=== PATIENT | male | born 1985 | race Caucasian/White ===

== ENCOUNTER 2022-05-26 21:41 | Emergency (ER) | payer OTHER, SELFPAY ==
--- NOTE | ~2022-05-26 | XR_ITS ---
EXAMINATION: XR CHEST CLINICAL INFORMATION: Cough. COMPARISON: None TECHNIQUE: Frontal view of the chest was obtained. FINDINGS: No significant abnormality is noted involving the heart, lungs, mediastinum, bony thorax or soft tissues. XR/XR chest 1V IMPRESSION: No acute cardiopulmonary process.
--- NOTE | 2022-05-26 21:46 | ECG_ITS ---
Test Reason : SYNCOPE Blood Pressure : / mmHG Vent. Rate : 084 BPM Atrial Rate : 084 BPM P-R Int : 174 ms QRS Dur : 104 ms QT Int : 378 ms P-R-T Axes : 046 -43 022 degrees QTc Int : 446 ms Normal sinus rhythm Left axis deviation Incomplete right bundle branch block Moderate voltage criteria for LVH, may be normal variant ( R in aVL , Jose Raul product ) Abnormal ECG No previous ECGs available Referred By: Karly Jones Electronically Signed By:TERESA DUARTE MD
[2022-05-26 22:14] LABS: MANUAL DIFF FLAG NO
[2022-05-26 22:16] LABS: Basophils Absolute Auto 0.1 X10*3/uL (0.0-0.2); Basophils Percent Auto 0.9 % (0-2); Eosinophils Absolute Auto 0.2 X10*3/uL (0.0-0.4); Eosinophils Percent Auto 2.1 % (0-4); Hematocrit 42.8 % (42.0-52.0); Hemoglobin 14.6 g/dl (14.0-18.0); Imm Gran Abs Auto 0.03 X10*3/uL (0.00-0.03); Imm Gran Pct Auto 0.4 % (0.0-0.4); Lymphocytes Absolute Auto 1.6 X10*3/uL (1.2-4.9); Lymphocytes Percent Auto 21.4 % (20-40); Mean Corpuscular HGB Conc 34.1 g/dl (31.0-36.0); Mean Corpuscular Hemoglobin 30.4 pg (27.0-33.0); Mean Corpuscular Volume 89.2 fL (80.0-98.0); Mean Platelet Volume 10.2 fL (9.4-12.4); Monocytes Absolute Auto 0.6 X10*3/uL (0.1-1.2); Monocytes Percent Auto 7.5 % (2-11); Neutrophils Absolute Auto 5.2 x10*3/uL (2.0-8.3); Neutrophils Percent Auto 67.7 % (45-73); Platelet Count 230 X10*3/uL (160-400); Red Cell Distribution Width 12.3 % (11.0-16.0); White Blood Count 7.6 X10*3/uL (4.8-10.8)
[2022-05-26 22:26] LABS: D Dimer High Sensitivity < 150 NG/ML
[2022-05-26 22:35] LABS: Alanine Aminotransferase 69 U/L (0-40); Albumin Level 4.7 g/dL (3.5-5.0); Alkaline Phosphatase 74 U/L (39-117); Anion Gap 16 (12-20); Aspartate Amino Transferase 35 U/L (5-37); Bilirubin Direct 0.3 mg/dL (0.0-0.5); Bilirubin Total 0.9 mg/dL (0.0-1.0); Blood Urea Nitrogen 14 mg/dL (9-16); Calcium 9.6 mg/dL (8.4-10.2); Carbon Dioxide 26 mmol/L (22-29); Chloride 107 mmol/L (96-108); Estimated Glomerular Filt Rate > 60; Glucose Random 111 mg/dL (60-115); Potassium 3.9 mmol/L (3.3-5.1); Sodium 145 mmol/L (135-145); Total Protein 7.6 g/dL (6.5-8.0)
[2022-05-26 22:43] LABS: COVID-19 Test Negative (Negative)
[2022-05-26 22:58] LABS: Troponin-I High Sensitivity < 3.5 ng/L (<3.5-35.0)
[2022-05-26 23:04] VITALS: BP 163/108; PULSE 92; RESP 18; TEMP 36.6; O2SAT 97; BMI 32.8
--- NOTE | 2022-05-27 00:44 | ED.GENADULT ---
HPI - General Adult General Chief complaint: Dizziness Stated complaint: coughing and stated passed out Time Seen by Provider: 05/27/22 00:33 Source: patient Mode of arrival: ambulatory Limitations: no limitations History of Present Illness HPI narrative: Patient comes to the emergency room complaining of cough for approximately 2-3 weeks. Patient states that besides the coughing spells he has, at night he feels a dripping sensation in the back of his throat which triggers a cough at night specifically. Also, patient states that today he had a coughing spell, patient states that he was coughing, and a few seconds later he found himself on the floor. Patient's witnessed the event, she was unsure if patient passed out, states it was less than 2 seconds. Patient denied any chest pain, only bilateral rib pain from coughing. Related Data Previous Rx's Medication Instructions Recorded benzonatate 100 mg capsule 100 mg PO TID PRN cough #14 caps 05/27/22 fexofenadine 60 mg-pseudoephedrine 1 tab PO Q12H #20 tabs 05/27/22 ER 120 mg tablet,ext.release,12 hr (Mary-D 12 Hour) Allergies Allergy/AdvReac Type Severity Reaction Status Date / Time No Known Allergies Allergy Verified 05/26/22 21:46 Review of Systems Review of Systems: Constitutional : No Weight loss, No Fever, No Chills, No Night Sweats, No Fatigue, No Malaise ENT/Mouth : No Hearing loss, No Ear Pain, No Nasal Congestion, No Sinus Pain, No Hoarseness, complaining of postnasal drip, No sore throat, No Rhinorrhea, No Swallowing Difficulty Eyes: No Eye Pain, No Swelling, No Redness, No Foreign Body, No Discharge, No Vision Changes Cardiovascular : No Chest Pain, No SOB, No Dyspnea on Exertion, No Orthopnea, No Edema, No Palpitations Respiratory : Complaining of chronic Cough, No Sputum, No Wheezing, No Smoke Exposure, No Dyspnea Gastrointestinal : No Nausea, No Vomiting, No Diarrhea, No Constipation, No abdominal Pain, No Hematochezia, No Melena Genitourinary : no irregular bleeding, No Dysuria, No Urinary Frequency, No Hematuria, No Urinary Incontinence, No Urgency, No Flank Pain, No Urinary Flow Changes, No Hesitancy Musculoskeletal : No joint pain, No Myalgias, No Joint Swelling Skin : No Skin Lesions, No rash Neuro : No Weakness, No Numbness, No Paresthesias, 1 episode of loss of consciousness for less than 2 seconds, no headache Psych : No Anxiety/Panic, No Depression, No SI/HI/AH/VH, No Social Issues, Heme/Lymph: No Bruising, No Bleeding,No Lymphadenopathy Endocrine : No Polyuria, No Polydipsia, No Temperature Intolerance Physical Exam ED Vital Signs: Vital Signs - 24 hr 05/26/22 23:04 Temperature 97.9 F Pulse Rate 92 Respiratory Rate 18 Blood Pressure 163/108 H Pulse Oximetry 97 Oxygen Delivery Method Room Air BMI result Body Mass Index 32.8 Const Other: Appearance: Alert. Oriented X3. No acute distress. Well appearing Eyes: Pupils equal, round and reactive to light. ENT: Pharynx normal. Neck: Normal inspection. Neck supple. No lymph nodes noted. No crepitus CVS: Normal heart rate and rhythm. Pulses normal. Normal S1 and S2 Respiratory: No respiratory distress. Breath sounds normal. No Wheezing. No rales Abdomen: Soft and nontender. No rigidity. No distention. Skin: Skin warm and dry. Normal skin color. Normal skin turgor. Extremities: No lower extremity edema. No Lacerations. No Rash Neuro: Oriented X 3. No motor deficit. No sensory deficit. Moving all extremities. No slurred speech. CN 2 through 12 grossly intact Psych: calm, cooperative, normal affect Course Course Course Narrative: I discussed with the patient that he likely has chronic bronchitis, coughing for several weeks, also he may have postnasal drip . Patient likely had a vasovagal episode from so much coughing. Patient's labs are unremarkable, troponin negative, D-dimer negative, chest x-ray negative I discussed with the patient that if he has recurrent syncopal episodes, he may need a Holter monitor evaluation or even a stress test Medical Decision Making Lab Data Result diagrams: 05/26/22 22:04 05/26/22 22:04 Labs: Lab Results 05/26/22 05/26/22 05/26/22 Range/Units 22:04 22:04 22:04 WBC 7.6 (4.8-10.8) X10*3/uL RBC 4.80 (4.60-5.80) X10*6/uL Hgb 14.6 (14.0-18.0) g/dl Hct 42.8 (42.0-52.0) % MCV 89.2 (80.0-98.0) fL MCH 30.4 (27.0-33.0) pg MCHC 34.1 (31.0-36.0) g/dl RDW 12.3 (11.0-16.0) % Plt Count 230 (160-400) X10*3/uL MPV 10.2 (9.4-12.4) fL Immature Gran % (Auto) 0.4 (0.0-0.4) % Neut % (Auto) 67.7 (45-73) % Lymph % (Auto) 21.4 (20-40) % [place] % (Auto) 7.5 (2-11) % Eos % (Auto) 2.1 (0-4) % Baso % (Auto) 0.9 (0-2) % Lymph # (Auto) 1.6 (1.2-4.9) X10*3/uL [place] # (Auto) 0.6 (0.1-1.2) X10*3/uL Eos # (Auto) 0.2 (0.0-0.4) X10*3/uL Baso # (Auto) 0.1 (0.0-0.2) X10*3/uL Abs Immat Gran (auto) 0.03 (0.00-0.03) X10*3/uL Absolute Neuts (auto) 5.2 (2.0-8.3) x10*3/uL Absolute Nucleated RBC 0.000 (0.0-0.012) X10*3/uL Nucleated RBC % (auto) 0.0 (0.0-0.2) /100WBC D-Dimer High Sensitivty < 150 NG/ML Sodium 145 (135-145) mmol/L Potassium 3.9 (3.3-5.1) mmol/L Chloride 107 (96-108) mmol/L Carbon Dioxide 26 (22-29) mmol/L Anion Gap 16 (12-20) BUN 14 (9-16) mg/dL Creatinine 1.03 (0.5-1.4) mg/dL Estim Creat Clear Calc TNP Estimated GFR > 60 Random Glucose 111 (60-115) mg/dL Calcium 9.6 (8.4-10.2) mg/dL Total Bilirubin 0.9 (0.0-1.0) mg/dL Direct Bilirubin 0.3 (0.0-0.5) mg/dL AST 35 (5-37) U/L ALT 69 H (0-40) U/L Alkaline Phosphatase 74 (39-117) U/L Troponin I High Sens (<3.5-35.0) ng/L Total Protein 7.6 (6.5-8.0) g/dL Albumin 4.7 (3.5-5.0) g/dL COVID-19 ([facility]) (Negative) COVID-19 Clin Com 05/26/22 05/26/22 Range/Units 22:04 22:04 WBC (4.8-10.8) X10*3/uL RBC (4.60-5.80) X10*6/uL Hgb (14.0-18.0) g/dl Hct (42.0-52.0) % MCV (80.0-98.0) fL MCH (27.0-33.0) pg MCHC (31.0-36.0) g/dl RDW (11.0-16.0) % Plt Count (160-400) X10*3/uL MPV (9.4-12.4) fL Immature Gran % (Auto) (0.0-0.4) % Neut % (Auto) (45-73) % Lymph % (Auto) (20-40) % [place] % (Auto) (2-11) % Eos % (Auto) (0-4) % Baso % (Auto) (0-2) % Lymph # (Auto) (1.2-4.9) X10*3/uL [place] # (Auto) (0.1-1.2) X10*3/uL Eos # (Auto) (0.0-0.4) X10*3/uL Baso # (Auto) (0.0-0.2) X10*3/uL Abs Immat Gran (auto) (0.00-0.03) X10*3/uL Absolute Neuts (auto) (2.0-8.3) x10*3/uL Absolute Nucleated RBC (0.0-0.012) X10*3/uL Nucleated RBC % (auto) (0.0-0.2) /100WBC D-Dimer High Sensitivty NG/ML Sodium (135-145) mmol/L Potassium (3.3-5.1) mmol/L Chloride (96-108) mmol/L Carbon Dioxide (22-29) mmol/L Anion Gap (12-20) BUN (9-16) mg/dL Creatinine (0.5-1.4) mg/dL Estim Creat Clear Calc Estimated GFR Random Glucose (60-115) mg/dL Calcium (8.4-10.2) mg/dL Total Bilirubin (0.0-1.0) mg/dL Direct Bilirubin (0.0-0.5) mg/dL AST (5-37) U/L ALT (0-40) U/L Alkaline Phosphatase (39-117) U/L Troponin I High Sens < 3.5 (<3.5-35.0) ng/L Total Protein (6.5-8.0) g/dL Albumin (3.5-5.0) g/dL COVID-19 ([facility]) Negative (Negative) COVID-19 Clin Com See Note Imaging Data Chest x-ray: Radiologist's impression: FINDINGS: No significant abnormality is noted involving the heart, lungs, mediastinum, bony thorax or soft tissues. XR/XR chest 1V IMPRESSION: No acute cardiopulmonary process. ECG Data Attestation: I personally reviewed and interpreted this ECG as follows: (Sinus rhythm, heart rate 84, no ST segment depression or elevation, no T-wave inversion, QTC 446) Discharge Plan Discharge Clinical Impression: Vasovagal syncope, Bronchitis, Post-nasal drip Patient Disposition: Home, Self-Care Instructions: Syncope (ED), Acute Bronchitis (ED) Additional Instructions: Please follow-up with your primary care physician tomorrow. If you have any worsening or new symptoms, please return to the emergency room or call 911 Prescriptions: New fexofenadine-pseudoephedrine [Mary-D 12 Hour] 60-120 mg tablet extended release 12 hr 1 tab PO Q12H Qty: 20 0RF benzonatate 100 mg capsule 100 mg PO TID PRN (Reason: cough) Qty: 14 0RF
--- OUTSIDE RECORDS SUMMARY | 2022-05-27 00:54 | XMS_ITS | Continuity of Care Document ---
:1985 Author Organization [facility] Adult Address [address] [place] [address]- Care Team Providers Name Role Phone Vijay VELIZ, Skinny Aviles Primary Care Physician Encounter [facility] Date(s): 10/09/20 - 11/08/20 [facility] Adult [address] [place] [address]- Attending Physician: Pankaj Quezada Admitting Physician: AdmPankaj middleton Referring Physician: AdmtrPankaj Allergies, Adverse Reactions, Alerts Substance Reaction Severity Status Amoxil rash Active Immunizations Given and Recorded Vaccine Date Status Refusal Reason influenza virus vaccine, inactivated1 06/09/20 Given 1Result Comment: [id number] Medications escitalopram 10 mg oral tablet 1 tablet = 10 mg, By Mouth, Daily, # 90 tablet, 3 Refills, Maintenance, 06/09/20 12:15:00 EST, Tablet, [id number] Start Date: 06/09/20 Status: OrderedLORazepam 1 mg oral tablet 1 tablet = 1 mg, By Mouth, Daily, PRN Take at the onset of a panic attack, # 6 tablet, 0 Refills, Maintenance, 07/18/20 15:28:00 EST, Tablet, [id number] Start Date: 07/18/20 Status: Ordered Problem List Condition Effective Dates Status Health Status Informant Multiple nevi(Confirmed) Active Mood disorder(Confirmed) Active Sebaceous cyst(Confirmed) Active Social History Social History Type Response Tobacco Other: 2 to 3 cigarettes a d ay. Sex Male
--- OUTSIDE RECORDS SUMMARY | 2022-05-27 00:54 | XMS_ITS | Continuity of Care Document ---
:1985 Author Organization [facility] Adult Address [address] [place] [address]- Care Team Providers Name Role Phone Vijay VELIZ, Skinny Aviles Primary Care Physician Encounter [facility] [place] Date(s): 10/09/20 - 10/16/20 [facility] Adult [address] [place] [address]- Encounter Diagnosis Multiple nevi (Discharge Diagnosis) - 10/09/20 Sebaceous cyst (Discharge Diagnosis) - 10/09/20 Attending Physician: Not on Staff, Attending MD Allergies, Adverse Reactions, Alerts Substance Reaction Severity Status Amoxil rash Active Immunizations Given and Recorded Vaccine Date Status Refusal Reason influenza virus vaccine, inactivated1 06/09/20 Given 1Result Comment: [id number] Medications escitalopram 10 mg oral tablet 1 [...] Active Mood disorder(Confirmed) Active Sebaceous cyst(Confirmed) Active Diagnosis Diagnosis Type Effective Dates Health Status Clinical In formant Service Multiple nevi Discharge 10/09/20 Diagnosis Sebaceous cyst Discharge 10/09/20 Diagnosis Vital Signs Most recent to oldest [Reference Range]: 1 Weight 102.2 kg (10/09/20 8:11 AM) Oxygen Saturation [94-100 %] 98 % (10/09/20 8:11 AM) Pulse Rate [55-90 bpm] 78 bpm (10/09/20 8:11 AM) Blood Pressure [90-138/55-84 mm Hg] 100/62 mm Hg (10/09/20 8:11 AM) Temperature [96.8-100.4 DegF] 98.1 DegF (10/09/20 8:11 AM) Blood pressure sites Arm, right (10/09/20 8:11 AM) Social History Social History Type Response Tobacco Other: 2 to 3 cigarettes a d ay. Sex Male
--- OUTSIDE RECORDS SUMMARY | 2022-05-27 00:54 | XMS_ITS | Continuity of Care Document ---
:1985 Author Organization [facility] Adult Address [address] [place] [address]- Care Team Providers Name Role Phone Skinny Linares MD Primary Care Physician Encounter [facility] [place] Date(s): 12/25/20 - 01/01/21 [facility] Adult [address] [place] [address]- Encounter Diagnosis General medical exam (Discharge Diagnosis) - 12/25/20 Mood disorder (Discharge Diagnosis) - 12/25/20 Attending Physician: Skinny Linares MD Allergies, Adverse Reactions, Alerts Substance Reaction Severity Status Amoxil rash Active Immunizations Given and Recorded Vaccine Date Status Refusal Reason influenza virus vaccine, inactivated1 06/09/20 Given 1Result Comment: [id number] Medications buPROPion 300 mg/24 hours (XL) oral tablet, extended release 1 tablet = 300 mg, By Mouth, Daily, # 90 tablet, 3 Refills, Maintenance, 12/25/20 14:43:00 EDT, ER Tablet, [id number], Partial fill upon patient request if the prescription is for a schedule IIopioid drug. Start Date: 12/25/20 Status: Orderedescitalopram 10 mg oral tablet 1 tablet = 10 mg, By Mouth, Daily, # 90 tablet, 3 Refills, Maintenance, 06/09/20 12:15:00 EST, Tablet, [id number] Start Date: 06/09/20 Status: OrderedLORazepam 1 mg oral tablet 1 tablet = 1 mg, By Mouth, Daily, PRN Take at the onset of a panic attack, # 6 tablet, 0 Refills, Maintenance, 11/25/20 17:18:00 EDT, Tablet, [id number] Start Date: 11/25/20 Status: Ordered Problem List Condition Effective Dates Status Health Status Informant Multiple nevi(Confirmed) Active Mood disorder(Confirmed) Active Sebaceous cyst(Confirmed) Active Diagnosis Diagnosis Type Effective Dates Health Status Clinical In [facility] Service Mood disorder Discharge 12/25/20 Diagnosis General medical Discharge 12/25/20 exam Diagnosis Vital Signs Most recent to oldest [Reference Range]: 1 Weight 107.3 kg (12/25/20 2:23 PM) Oxygen Saturation [94-100 %] 98 % (12/25/20 2:23 PM) Pulse Rate [55-90 bpm] 72 bpm (12/25/20 2:23 PM) Blood Pressure [90-138/55-84 mm Hg] 110/76 mm Hg (12/25/20 2:23 PM) Temperature [96.8-100.4 DegF] 97.9 DegF (12/25/20 2:23 PM) Mode of Delivery (Oxygen) Room air (12/25/20 2:23 PM) Blood pressure sites Arm, left (12/25/20 2:23 PM) Temperature Route Oral (12/25/20 2:23 PM) Weight Obtained Via Standing scale (12/25/20 2:23 PM) Social History Social History Type Response Tobacco Other: 2 to 3 cigarettes a d ay. Sex Male
--- OUTSIDE RECORDS SUMMARY | 2022-05-27 00:54 | XMS_ITS | Continuity of Care Document ---
:1985 Author Organization [facility] Adult Address [address] [place] [address]- Care Team Providers Name Role Phone Skinny Linares MD Primary Care Physician Encounter [facility] [place] Date(s): 12/04/19 - 12/11/19 [facility] Adult [address] [place] [address]- [facility] Encounter Diagnosis Atypical depression (Discharge Diagnosis) - 12/04/19 Attending Physician: Skinny Linares MD Medications escitalopram 5 mg oral tablet 1 tablet = 5 mg, By Mouth, Daily, # 30 tablet, 5 Refills, Maintenance, 12/04/19 11:26:00 EDT, Tablet, [id number] Start Date: 12/04/19 Status: OrderedLORazepam 1 mg oral tablet 1 tablet = 1 mg, By Mouth, Daily, PRN Take at the onset of a panic attack, # 6 tablet, 0 Refills, Maintenance, 12/04/19 11:26:00 EDT, Tablet, [id number] Start Date: 12/04/19 Status: Ordered Problem List Diagnosis Diagnosis Type Effective Dates Health Clinical Infor [facility] Status Service Atypical Discharge 12/04/19 depression Diagnosis Social History Social History Type Response Tobacco Other: 2 to 3 cigarettes a d ay. Sex Male
--- OUTSIDE RECORDS SUMMARY | 2022-05-27 00:54 | XMS_ITS | Continuity of Care Document ---
:1985 Author Organization [facility] Adult Address [address] [place] [address]- Care Team Providers Name Role Phone Skinny Linares MD Primary Care Physician [place] [facility] [place]17[place] - 12/24/19 [facility] Adult [address] [place] [address]- [facility] Attending Physician: Skinny Linares MD Medications escitalopram 5 mg oral tablet 1 tablet = 5 mg, By Mouth, Daily, # 30 tablet, 5 Refills, Maintenance, 12/04/19 11:26:00 EDT, Tablet, [id number] Start Date: 12/04/19 Status: OrderedLORazepam 1 mg oral tablet 1 tablet = 1 mg, By Mouth, Daily, PRN Take at the onset of a panic attack, # 6 tablet, 0 Refills, Maintenance, 12/17/19 15:11:00 EDT, Tablet, [id number] Start Date: 12/17/19 Status: Ordered Social History Social History Type Response Tobacco Other: 2 to 3 cigarettes a d ay. Sex Male
--- OUTSIDE RECORDS SUMMARY | 2022-05-27 00:54 | XMS_ITS | Continuity of Care Document ---
:1985 Author Organization [facility] Adult Address [address] [place] [address]- Care Team Providers Name Role Phone Skinny Linares MD Primary Care Physician [place] [facility] [place] 01/17/20 [facility] Adult [address] [place] [address]- [facility] Attending Physician: Skinny Linares MD Medications escitalopram [...]
--- OUTSIDE RECORDS SUMMARY | 2022-05-27 00:54 | XMS_ITS | Continuity of Care Document ---
:1985 Author Organization [facility] Adult Address [address] [place] [address]- Care Team Providers Name Role Phone Cat Cota NP Primary Care Physician [place] [facility] [place](s): 01/01/22 - 01/31/22 [facility] Adult [address] [place] [address]- Attending Physician: Pankaj Quezada Admitting Physician: AdmtrPankaj Referring Physician: Admtr, ArDean Allergies, Adverse Reactions, Alerts Substance Reaction Severity Status Amoxil rash Active Immunizations Given and Recorded Vaccine Date Status Refusal Reason influenza virus vaccine, inactivated1 06/09/20 Given 1Result Comment: [id number] Medications buPROPion 300 mg/24 hours (XL) oral tablet, extended release 1 tablet, By Mouth, Daily, # 30 tablet, 11 Refills, [id number], 180, cm, 03/06/21 13:45:00 EDT,Height Start Date: 01/11/22 Status: Orderedescitalopram 5 mg oral tablet 1 tablet, By Mouth, Daily, # 30 tablet, 5 Refills, [id number], 180, cm, 03/06/21 13:45:00 EDT, Height Start Date: 09/10/21 Status: OrderedLORazepam 1 mg oral tablet 1 [...]
--- OUTSIDE RECORDS SUMMARY | 2022-05-27 00:54 | XMS_ITS | Continuity of Care Document ---
:1985 Author Organization [facility] Adult Address [address] [place] [address]- Care Team Providers Name Role Phone Vijay VELIZ, Skinny Aviles Primary Care Physician [place] [facility] [place] 07[place]/20 [facility] Adult [address] [place] [address]- Allergies, Adverse Reactions, Alerts Substance Reaction Severity Status Amoxil rash Active Immunizations Given and Recorded Vaccine Date Status Refusal Reason influenza virus vaccine, inactivated1 06/09/20 Given 1Result Comment: [id number] Medications escitalopram 10 mg oral tablet 1 [...] Condition Effective Dates Status Health Status Informant Mood disorder(Confirmed) Active Social History Social History Type Response Tobacco Other: 2 to 3 cigarettes a d ay. Sex Male
--- OUTSIDE RECORDS SUMMARY | 2022-05-27 00:54 | XMS_ITS | Continuity of Care Document ---
:1985 Author Organization [facility] Adult Address [address] [place] [address]- Care Team Providers Name Role Phone Vijay VELIZ, Skinny Aviles Primary Care Physician Encounter [facility] [place] Date(s): 03/06/20 - 04/05/20 [facility] Adult [address] [place] [address]- [facility] Medications escitalopram 5 mg oral tablet 1 tablet = 5 mg, By Mouth, Daily, # 30 tablet, 5 Refills, Maintenance, 12/04/19 11:26:00 EDT, Tablet, [id number] Start Date: 12/04/19 Status: OrderedLORazepam 1 mg oral tablet 1 tablet = 1 mg, By Mouth, Daily, PRN Take at the onset of a panic attack, # 6 tablet, 0 Refills, Maintenance, 03/06/20 16:53:00 EDT, Tablet, [id number] Start Date: 03/06/20 Status: Ordered Social History Social History Type Response Tobacco Other: 2 to 3 cigarettes a d ay. Sex Male
--- OUTSIDE RECORDS SUMMARY | 2022-05-27 00:54 | XMS_ITS | Continuity of Care Document ---
:1985 Author Organization [facility] Adult Address [address] [place] [address]- Care Team Providers Name Role Phone Skinny Linares MD Primary Care Physician Encounter [facility] [place] Date(s): 11/25/20 - 12/25/20 [facility] Adult [address] [place] [address]- Allergies, Adverse Reactions, Alerts Substance Reaction Severity Status Amoxil rash Active Immunizations Given and Recorded Vaccine Date Status Refusal Reason influenza virus vaccine, inactivated1 06/09/20 Given 1Result Comment: [id number] Medications buPROPion 300 mg/24 hours (XL) oral [...]
--- OUTSIDE RECORDS SUMMARY | 2022-05-27 00:54 | XMS_ITS | Continuity of Care Document ---
:1985 Author Organization [facility] Adult Address [address] [place] [address]- Care Team Providers Name Role Phone Skinny Linares MD Primary Care Physician [place] [facility] [place] 06[place]09/20 - 06/16/20 [facility] Adult [address] [place] [address]- Encounter Diagnosis Mood disorder (Discharge Diagnosis) - 06/09/20 Attending Physician: Skinny Linares MD Allergies, Adverse Reactions, Alerts Substance Reaction Severity Status Amoxil rash Active Immunizations Given and Recorded Vaccine Date Status Refusal Reason influenza virus vaccine, inactivated1 06/09/20 Given 1Result Comment: [id number] Medications escitalopram 10 mg oral tablet 1 tablet = 10 mg, By Mouth, Daily, # 90 tablet, 3 Refills, Maintenance, 06/09/20 12:15:00 EST, Tablet, [id number] Start Date: 06/09/20 Status: OrderedLORazepam 1 mg oral tablet 1 tablet = 1 mg, By Mouth, Daily, PRN Take at the onset of a panic attack, # 6 tablet, 0 Refills, Maintenance, 06/05/20 12:01:00 EDT, Tablet, [id number] Start Date: 06/05/20 Status: Ordered Problem List Condition Effective Dates Status Health Status Informant Mood disorder(Confirmed) Active Diagnosis Diagnosis Type Effective Dates Health Status Clinical In formant Service Mood disorder Discharge 06/09/20 Diagnosis Vital Signs Most recent to oldest [Reference Range]: 1 Weight 99.8 kg (06/09/20 11:44 AM) Oxygen Saturation [94-100 %] 97 % (06/09/20 11:44 AM) Pulse Rate [55-90 bpm] 80 bpm (06/09/20 11:44 AM) Blood Pressure [90-138/55-84 mm Hg] 112/64 mm Hg (06/09/20 11:44 AM) Temperature [96.8-100.4 DegF] 98.1 DegF (06/09/20 11:44 AM) Mode of Delivery (Oxygen) Room air (06/09/20 11:44 AM) Blood pressure sites Arm, left (06/09/20 11:44 AM) Temperature Route Oral (06/09/20 11:44 AM) Weight Obtained Via Standing scale (06/09/20 11:44 AM) Social History Social History Type Response Tobacco Other: 2 to 3 cigarettes a d ay. Sex Male
--- OUTSIDE RECORDS SUMMARY | 2022-05-27 00:55 | XMS_ITS | Continuity of Care Document ---
:1985 Author Organization [facility] Adult Address [address] [place] [address]- Care Team Providers Name Role Phone Cipriano SEXTON, Cat Valle Primary Care Physician Encounter [facility] [place] Date(s): 10/03/21 - 01/31/22 [facility] Adult [address] [place] [address]- Attending Physician: Cat Cota NP Referring Physician: Grisel VELIZ, Vahe Lerner Allergies, Adverse Reactions, Alerts Substance Reaction Severity Status Amoxil rash Active Immunizations Given and Recorded Vaccine Date Status Refusal Reason influenza virus vaccine, inactivated1 06/09/20 Given 1Result Comment: [id number] Medications buPROPion 300 mg/24 hours (XL) oral tablet, extended release 1 tablet, By Mouth, Daily, # 30 tablet, 11 Refills, [id number], 180, cm, 03/06/21 13:45:00 EDT,Height Start Date: 01/11/22 Status: Orderedescitalopram 5 mg oral tablet 1 tablet, By Mouth, Daily, # 30 tablet, 5 Refills, [facility], 180, cm, 03/06/21 13:45:00 EDT, Height Start [...]
--- OUTSIDE RECORDS SUMMARY | 2022-05-27 00:55 | XMS_ITS | Continuity of Care Document ---
:1985 Author Organization [facility] Adult Address [address] [place] [address]- Care Team Providers Name Role Phone Skinny Linares MD Primary Care Physician Encounter [facility] [place] Date(s): 12/25/20 - 01/24/21 [facility] Adult [address] [place] [address]- Attending Physician: Pankaj Quezada Admitting Physician: AdmtrPankaj Referring Physician: Admtr, Ar8 Allergies, Adverse Reactions, Alerts Substance Reaction Severity Status Amoxil rash Active Immunizations Given and Recorded Vaccine Date Status Refusal Reason influenza virus vaccine, inactivated1 06/09/20 Given 1Result Comment: [id number] Medications buPROPion 300 mg/24 hours (XL) oral [...]
--- OUTSIDE RECORDS SUMMARY | 2022-05-27 00:55 | XMS_ITS | Continuity of Care Document ---
:1985 Author Organization [facility] Adult Address [address] [place] [address]- Care Team Providers Name Role Phone Skinny Linares MD Primary Care Physician Encounter [facility] [place] Date(s): 03/06/21 - 03/13/21 [facility] Adult [address] [place] [address]- Encounter Diagnosis Mood disorder (Discharge Diagnosis) - 03/06/21 Attending Physician: Skinny Linares MD Allergies, Adverse Reactions, Alerts Substance Reaction Severity Status Amoxil rash Active Immunizations Given and Recorded Vaccine Date Status Refusal Reason influenza virus vaccine, inactivated1 06/09/20 Given 1Result Comment: [id number] Medications buPROPion 300 mg/24 hours (XL) oral tablet, extended release 1 tablet = 300 mg, By Mouth, Daily, # 90 tablet, 3 Refills, Maintenance, 12/25/20 14:43:00 EDT, ER Tablet, [id number], Partial fill upon patient request if the prescription is for a schedule IIopioid drug. Start Date: 12/25/20 Status: Orderedescitalopram 5 mg oral tablet 1 tablet = 5 mg, By Mouth, Daily, # 30 tablet, 5 Refills, Maintenance, 03/06/21 14:10:00 EDT, Tablet, [id number], Partial fill upon patient request if the prescription is for a schedule II opioid drug., 180, cm, 03/06/21 13:45:00 EDT, Height Start Date: 03/06/21 Status: OrderedLORazepam 1 mg oral tablet 1 [...] Type Effective Dates Health Status Clinical In [facility] Mood disorder Discharge 03/06/21 Diagnosis Vital Signs Most recent to oldest [Reference Range]: 1 Height 180.0 cm (03/06/21 1:45 PM) Weight 110.3 kg (03/06/21 1:45 PM) Oxygen Saturation [94-100 %] 98 % (03/06/21 1:45 PM) Pulse Rate [55-90 bpm] 102 bpm *H* (03/06/21 1:45 PM) Body Mass Index [18.5-24.99] 34.04 *>HHI* (03/06/21 1:45 PM) Blood Pressure [90-138/55-84 mm Hg] 106/68 mm Hg (03/06/21 1:45 PM) Temperature [96.8-100.4 DegF] 98.3 DegF (03/06/21 1:45 PM) Mode of Delivery (Oxygen) Room air (03/06/21 1:45 PM) Blood pressure sites Arm, left (03/06/21 1:45 PM) Temperature Route Oral (03/06/21 1:45 PM) Weight Obtained Via Standing scale (03/06/21 1:45 PM) Social History Social History Type Response Tobacco Other: 2 to 3 cigarettes a d ay. Sex Male
--- OUTSIDE RECORDS SUMMARY | 2022-05-27 00:55 | XMS_ITS | Continuity of Care Document ---
:1985 Author Organization [facility] Adult Address [address] [place] [address]- Care Team Providers Name Role Phone Skinny Linares MD Primary Care Physician En[place] [facility] [place] Date(s): 12/17/19 - 01/16/20 [facility] Adult [address] [place] [address]- [facility] Attending Physician: Pankaj Quezada Admitting Physician: Pankaj Quezada Referring Physician: trPankaj Medications escitalopram 5 mg oral tablet 1 [...]
--- OUTSIDE RECORDS SUMMARY | 2022-05-27 00:55 | XMS_ITS | Continuity of Care Document ---
:1985 Author Organization [facility] Adult Address [address] [place] [address]- Care Team Providers Name Role Phone Skinny Linares MD Primary Care Physician Encounter [facility] [place] Date(s): 05/14/21 - 06/13/21 [facility] Adult [address] [place] [address]- Allergies, Adverse Reactions, Alerts Substance Reaction Severity Status Amoxil rash Active Immunizations Given and Recorded Vaccine Date Status Refusal Reason influenza virus vaccine, inactivated1 06/09/20 Given 1Result Comment: [id number] Medications buPROPion 300 mg/24 hours (XL) oral [...] 17:18:00 EDT, Tablet, [id number] Start Date: 4/20/21 Status: Ordered Problem List Condition Effective Dates Status Health Status Informant Multiple nevi(Confirmed) Active Mood disorder(Confirmed) Active Sebaceous cyst(Confirmed) Active Social History Social History Type Response Tobacco Other: 2 to 3 cigarettes a d ay. Sex Male
--- OUTSIDE RECORDS SUMMARY | 2022-05-27 00:55 | XMS_ITS | Continuity of Care Document ---
:1985 Author Organization [facility] Adult Address [address] [place] [address]- Care Team Providers Name Role Phone Skinny Linares MD Primary Care Physician Encounter [facility] [place] Date(s): 03/06/21 - 04/05/21 [facility] Adult [address] [place] [address]- Attending Physician: Pankaj Quezada Admitting Physician: AdmtrPankaj Referring Physician: Admtr, Ar8 Allergies, Adverse Reactions, Alerts Substance Reaction Severity Status Amoxil rash Active Immunizations Given and Recorded Vaccine Date Status Refusal Reason influenza virus vaccine, inactivated1 06/09/20 Given 1Result Comment: [id number] Medications buPROPion 300 mg/24 hours (XL) oral [...]
--- OUTSIDE RECORDS SUMMARY | 2022-05-27 00:55 | XMS_ITS | Continuity of Care Document ---
:1985 Author Organization [facility] Adult Address [address] [place] [address]- Care Team Providers Name Role Phone Skinny Linares MD Primary Care Physician [place] [facility] [place](s): 06/05/20 - 06/12/20 [facility] Adult [address] [place] [address]- Encounter Diagnosis Rectal bleed (Discharge Diagnosis) - 06/05/20 Attending Physician: Skinny Linares MD Allergies, Adverse Reactions, Alerts Substance Reaction Severity Status Amoxil rash Active Immunizations Given and Recorded Vaccine Date Status Refusal Reason influenza virus vaccine, inactivated1 06/09/20 Given 1Result Comment: [id number] Medications escitalopram 10 mg oral tablet 1 [...] Dates Health Status Clinical In [facility] Rectal bleed Discharge 06/05/20 Diagnosis Social History Social History Type Response Tobacco Other: 2 to 3 cigarettes a d ay. Sex Male
--- OUTSIDE RECORDS SUMMARY | 2022-05-27 00:55 | XMS_ITS | Continuity of Care Document ---
:1985 Author Organization [facility] Adult Address [address] [place] [address]- Care Team Providers Name Role Phone Vijay VELIZ, Skinny Aviles Primary Care Physician Encounter [facility] [place] Date(s): 03/04/20 - 04/03/20 [facility] Adult [address] [place] [address]- [facility] Medications escitalopram 5 mg oral tablet [...]
--- OUTSIDE RECORDS SUMMARY | 2022-05-27 00:55 | XMS_ITS | Continuity of Care Document ---
:1985 Author Organization [facility] Adult Address [address] [place] [address]- Care Team Providers Name Role Phone Vijay VELIZ, Skinny Aviles Primary Care Physician [place] [facility] [place] - 08/14/20 [facility] Adult [address] [place] [address]- Allergies, Adverse Reactions, Alerts Substance Reaction Severity Status Amoxil rash Active Immunizations Given and Recorded Vaccine Date Status Refusal Reason influenza virus vaccine, inactivated1 06/09/20 Given 1Result Comment: [id number] Medications escitalopram 10 mg oral tablet 1 [...]
--- OUTSIDE RECORDS SUMMARY | 2022-05-27 00:55 | XMS_ITS | Continuity of Care Document ---
:1985 Author Organization [facility] Adult Address [address] [place] [address]- Care Team Providers Name Role Phone Vijay VELIZ, Skinny Aviles Primary Care Physician [place] [facility] [place] 11/06/20 - 12/06/20 [facility] Adult [address] [place] [address]- Allergies, Adverse Reactions, Alerts Substance Reaction Severity Status Amoxil rash Active Immunizations Given and Recorded Vaccine Date Status Refusal Reason influenza virus vaccine, inactivated1 06/09/20 Given 1Result Comment: [id number] Medications escitalopram 10 mg oral tablet 1 [...]
--- OUTSIDE RECORDS SUMMARY | 2022-05-27 00:55 | XMS_ITS | Continuity of Care Document ---
:1985 Author Organization [facility] Adult Address [address] [place] [address]- Care Team Providers Name Role Phone Cipriano SEXTON, Cat Valle Primary Care Physician Encounter [facility] [place] Date(s): 10/06/21 - 11/05/21 [facility] Adult [address] [place] [address]- Allergies, Adverse Reactions, Alerts Substance Reaction Severity Status Amoxil rash Active Immunizations Given and Recorded Vaccine Date Status Refusal Reason influenza virus vaccine, inactivated1 06/09/20 Given 1Result Comment: [id number] Medications buPROPion 300 mg/24 hours (XL) oral [...] # 30 tablet, 5 Refills, [id number], 180, cm, 03/06/21 13:45:00 EDT, Height Start [...]
--- OUTSIDE RECORDS SUMMARY | 2022-05-27 00:55 | XMS_ITS | Continuity of Care Document ---
:1985 Author Organization [facility] Adult Address [address] [place] [address]- Care Team Providers Name Role Phone Vijay VELIZ, Skinny Aviles Primary Care Physician Encounter [facility] [place] Date(s): 02/29/20 - 03/30/20 [facility] Adult [address] [place] [address]- [facility] Medications escitalopram 5 mg oral tablet 1 [...]
--- NOTE | 2022-05-27 01:02 | PC.NURSE ---
PT A&O, NO SOB OR CHEST PAIN. Reviewed discharge instruction with pt . Pt verbalized understanding.
== END 2022-05-27 01:06 | disposition home or self-care (01) ==
PROVIDERS: Emergency Provider Emergency Medicine
DX: R55 Syncope and collapse (principal); J40 Bronchitis, not specified as acute or chronic; R05.9 Cough, unspecified; R09.82 Postnasal drip; Z20.822 Contact with and (suspected) exposure to COVID-19; Z79.899 Other long term (current) drug therapy
CPT/HCPCS: 71045; 80048; 80076; 84484; 85025; 85379; 87635; 93005; 99283; 99284

== ENCOUNTER 2023-08-19 07:16 | Emergency (ER) | payer OTHER, SELFPAY ==
[2023-08-19 07:28] VITALS: BP 111/74; BP 115/55; PULSE 110; PULSE 99; RESP 20; TEMP 36.8; O2SAT 94; BMI 36.3
--- NOTE | 2023-08-19 07:28 | ED_ITS ---
HPI - Nausea/Vomiting/Diarrhea General Chief complaint: Nausea/Vomiting/Diarrhea Stated complaint: n/v/d per ems Source: patient and EMS Mode of arrival: EMS Limitations: no limitations History of Present Illness HPI Narrative: 37 year old male with no significant pmhx presents to the ED this morning via EMS from home for evaluation of nausea, vomiting, and diarrhea beginning at 0200 this morning (5 hours ago). Reports multiple episodes of nonbloody vomiting. Last BM [employer]. Admits to feeling like he was hit by a truck . Reports eating pizza prior to going to bed last night which is nothing out of the ordinary. Has not taken any OTC medications for this [employer] in ED. 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 Denies fever, chills, chest pain, abdominal pain, dysuria, hematuria, melena, bright red blood per rectum. Denies marijuana use. No recent travel. Admits to drinking 2 glasses of wine daily. Last drink yesterday. Related Data Previous Rx's Medication Instructions Recorded benzonatate 100 mg capsule 100 mg PO TID PRN cough #14 caps 05/27/22 fexofenadine 60 mg-pseudoephedrine 1 tab PO Q12H #20 tabs 05/27/22 ER 120 mg tablet,ext.release,12 hr (Mary-D 12 Hour) ondansetron 4 mg disintegrating 4 mg PO DAILY PRN nausea and 08/19/23 tablet vomiting 5 days #14 tabs Allergies Allergy/AdvReac Type Severity Reaction Status Date / Time No Known Allergies Allergy Verified 05/26/22 21:46 Review of Systems 2 Review of Systems: Constitutional: No fever, chills, fatigue, night sweats, weight changes ENT/Mouth: No ear pain, hearing loss, nasal congestion, sinus pain, rhinorrhea, sore throat Eyes: No eye pain, swelling, redness, vision changes, discharge Cardio: No chest pain, palpitations, CARLIN, orthopnea, peripheral edema Pulm: No SOB, cough, sputum, wheezing, dyspnea, hemoptysis GI: +nausea, +vomiting, No hematemesis, abdominal pain, +diarrhea, No constipation, hematochezia, melena : No irregular bleeding, dysuria, frequency, urgency, hesitancy, hematuria, flank pain, urinary flow changes, urinary incontinence or retention MSK: No back pain, neck pain, joint pain, myalgias Skin: No lesions, rashes Neuro: No weakness, numbness, paresthesias, LOC, dizziness, headache All other systems reviewed and are negative. [facility] Past Medical History Attestation statement: The following information was validated with the patient. Source: old records reviewed and nursing notes reviewed Onset Date is defined in the Problem List Problems that require an onset date and time if occurred within 24 hrs of arrival to the ED Aortic Dissection and Rupture; Neurologic impairment; Cardiopulmonary Arrest; Endotracheal Intubation; Insertion or Replacement of Mechanical Circulatory Assist Device Social History Social History Patient Tobacco Use Status: Never used Tobacco Advance Directives: No Advance Directives Information Provided: No Physical Exam 2 Vital Signs: Vital Signs: Last Vital Signs Temp 98.5 F 08/19/23 09:30 Pulse 122 H 08/19/23 09:30 Resp 20 08/19/23 09:30 BP 131/90 H 08/19/23 09:30 Pulse Ox 95 08/19/23 09:30 O2 Del Method Room Air 08/19/23 09:30 BMI result Body Mass Index 36.3 Patient hypertensive. otherwise wnl. Const: Other: + dry heaving on exam General: cooperative, no acute distress, alert and awake Nutritional Appearance: overweight Orientation/consciousness: patient oriented x3 L imitations: no limitations HEENT: Head: Yes normal to inspection Ears: hearing grossly normal bilaterally General nose exam: Normal external nose present Eyes: General: appearance normal, both eyes and all related structures C onjunctivae: conjunctivae normal Sclerae: sclerae normal Pupils: Equal, round and reactive pupils present Neck: Neck: Yes normal visual inspection, Yes full ROM, Yes no lymphadenopathy, Yes no meningeal signs and Yes no JVD Resp: Effort & Inspection: normal respiratory effort and able to speak in complete sentences Auscultation: clear to auscultation bilaterally Cardio: Jugular venous distension: no JVD Rate: regular rate Rhythm: r egular rhythm Peripheral pulses: radial pulses present GI: Other: + Abd soft, nondistended, nontender to p alpation, no rebound or guarding. normoactive bs x4. no mcburney point tenderness Inspection: Yes normal to inspection Palpation (GI): No hepatosplenomegaly present : General: Yes no CVA tenderness Back/Spine/Pelvis: Back: no CVA tenderness Skin: General skin exam: no rashes or lesions noted Neuro: General: patient oriented x3, gait normal, moves all extremities and no meningeal signs Cranial nerves: Yes Equal, round and reactive pupils present Extrem: General: Yes normal to inspection Course Course Course Narrative: 1000 -- CBC without leukocytosis or anemia. Elevated BUN likely secondary to dehydration. Receiving IVF. No acute electrolyte abnormalities requiring intervention. Lipase wnl. Urine negative for infection. Negative for covid and influenza. >> Patient is requesting to go home. On re-evaluation, he reports symptom improvement since receiving droperidol & IVF. No episodes of vomiting in ED. He is tolerating water and crackers. likely a GI bug. he is declining to give stool sample at this time. Discussed strict return precautions. All questions answered at this time. Patient is agreeable with disposition and stable for discharge. Medications Administered Discontinued Medications Generic Name Dose Route Start Last Admin Trade Name J Luis PRN Reason Stop Dose Admin Droperidol 1.25 mg 08/19/23 07:47 08/19/23 08:03 Droperidol 5 Mg/2 Ml Vial IVPUSH 08/19/23 07:48 1.25 mg ONCE ONE Administration Sodium Chloride 1,000 mls @ 999 mls/hr 08/19/23 08:00 08/19/23 09:22 Ns IV 08/19/23 09:00 Infused .Q1H1M LOPEZ Infusion Ketorolac Tromethamine 30 mg 08/19/23 08:01 08/19/23 08:09 Ketorolac Tromethamine 30 Mg/Ml Vial IVPUSH 08/19/23 08:02 30 mg ONCE ONE Administration Medical Decision Making Medical Decision Making MDM Narrative: 37 year old male with no significant pmhx presents to the ED this morning via EMS from home for evaluation of nausea, vomiting, and diarrhea beginning at 0200 this morning (5 hours ago). Patient is slightly hypotensive to 115/55 likely secondary to vomiting. Receiving IV fluids from EMS. Patient actively dry heaving on exam. Abd soft, nondistended, nontender to palpation, no rebound or guarding. no mcburney point tenderness. Clinical concern for gastroenteritis, viral syndrome, dehydration, electrolyte imbalance. Lower suspicion for etoh withdrawl, pancreatitis. Unlikely cdiff, appendicitis, cholecystitis, SBO, ischemic bowel, acute abdomen. Unlikely ACS, arrythmia. Plan for serology, labs, UA, stool panel, meds, and re-evaluation. Differential Diagnosis Differential Diagnoses: The differential diagnosis associated with the presentation includes as above. Admission/Observation not indicated Lab Data MDM Lab Attestation statement: I reviewed the patient's lab results. as above. 08/19/23 07:58 08/19/23 07:58 Labs: Lab Results 08/19/23 08/19/23 Range/Units 07:58 09:25 WBC 8.7 (4.8-10.8) X10*3/uL RBC 5.35 (4.60-5.80) X10*6/uL Hgb 16.1 (14.0-18.0) g/dl Hct 46.5 (42.0-52.0) % MCV 86.9 (80.0-98.0) fL MCH 30.1 (27.0-33.0) pg MCHC 34.6 (31.0-36.0) g/dl RDW 12.2 (11.0-16.0) % Plt Count 197 (160-400) X10*3/uL MPV 10.0 (9.4-12.4) fL Immature Gran % (Auto) 0.3 (0.0-0.4) % Neut % (Auto) 86.4 H (45-73) % Lymph % (Auto) 5.5 L (20-40) % [place] % (Auto) 6.9 (2-11) % Eos % (Auto) 0.6 (0-4) % Baso % (Auto) 0.3 (0-2) % Lymph # (Auto) 0.5 L (1.2-4.9) X10*3/uL [place] # (Auto) 0.6 (0.1-1.2) X10*3/uL Eos # (Auto) 0.1 (0.0-0.4) X10*3/uL Baso # (Auto) 0.0 (0.0-0.2) X10*3/uL Abs Immat Gran (auto) 0.03 (0.00-0.03) X10*3/uL Absolute Neuts (auto) 7.5 (2.0-8.3) x10*3/uL Absolute Nucleated RBC 0.000 (0.0-0.012) X10*3/uL Nucleated RBC % (auto) 0.0 (0.0-0.2) /100WBC Sodium 141 (135-145) mmol/L Potassium 3.8 (3.3-5.1) mmol/L Chloride 109 H (96-108) mmol/L Carbon Dioxide 16 L (22-29) mmol/L Anion Gap 20 (12-20) BUN 18 H (9-16) mg/dL Creatinine 0.94 (0.5-1.4) mg/dL Estim Creat Clear Calc 141.9 Estimated GFR > 60 Random Glucose 137 H (60-115) mg/dL Calcium 9.4 (8.4-10.2) mg/dL Magnesium 2.1 (1.6-2.6) mg/dL Lipase 58 (8-78) U/L Urine Color Yellow Urine Appearance Clear Urine pH 5.0 (5.0-9.0) Ur Specific [place] 1.015 (1.005-1.025) Urine Protein 30 (1+) H (Neg-Trace) mg/dL Urine Glucose (UA) Negative (Negative) mg/dL Urine Ketones 15 (Negative) mg/dL Urine Blood Negative (Negative) Urine Nitrite Negative (Negative) Ur Leukocyte Esterase Negative (Negative) Urine RBC 0-2 (0-2) /HPF Urine WBC 0-5 (0-5) /HPF Ur Squamous Epith Cells 0-2 (0-2) /HPF Urine Bacteria None Seen (None Seen) Hyaline Casts 0-2 (0-2) /LPF COVID-19 (SAMIRA) Negative (Negative) COVID-19 Clin Com See Note Influenza Type A (MIRELLA) Negative (Negative) Influenza Type B (MIRELLA) Negative (Negative) Influenza A & B Note See Note Independent Historian Clinical information obtained from an independent historian. History obtained from or confirmed by: EMS External Record Review External record reviewed: Inpatient record Prescription Management I considered prescription management with: Other (antiemetic, droperidol) Social Determinants Patient?s care significantly limited by Social Determinants of Health including: Other Social Determinant of Health Critical Care Time Critical Care Time Critical Care Time: No Discharge Plan Discharge Clinical Impression: Gastroenteritis Patient Disposition: Home, Self-Care Instructions: Gastroenteritis (ED), Acute Nausea and Vomiting (ED), Acute Diarrhea (ED) Additional Instructions: Your lab workup today was reassuring.? Your urine test was negative for infection. You tested negative for COVID, influenza. Your symptoms are most consistent with a viral stomach bug, also known as gastroenteritis.? The treatment for this is supportive care. Symptoms usually resolve on their own in 48-72 hours.? The recommendation is rest and lots of oral hydration.? Stick to a bland diet like soup and toast while you are not feeling well.? Zofran is an anti-nausea medication. This has been sent to your pharmacy for you to take as needed for nausea.? You can also try over the counter Pepto Bismol or Imodium as needed for upset stomach and diarrhea.? Follow up with your primary care provider as needed. If you develop new or worsening symptoms call 911 or come back to the ER for further evaluation. Prescriptions: New ondansetron 4 mg tablet,disintegrating 4 mg PO DAILY PRN (Reason: nausea and vomiting) 5 Days Qty: 14 0RF No Action fexofenadine-pseudoephedrine [Mary-D 12 Hour] 60-120 mg tablet extended release 12 hr 1 tab PO Q12H Qty: 20 0RF benzonatate 100 mg capsule 100 mg PO TID PRN (Reason: cough) Qty: 14 0RF Interventions: ED Discharge Assessment Last Done: 08/19/23 10:17 Discharge Date/Time: 08/19/23 10:17
[2023-08-19 08:02] LABS: MANUAL DIFF FLAG NO
[2023-08-19] MEDS: 0.9 % Sodium Chloride 1,000 ML 999 ML IV (08:02)
[2023-08-19] MEDS: droPERidol 5 MG/2 ML VIAL 1.25 MG IVPUSH (08:03)
[2023-08-19 08:04] LABS: Basophils Percent Auto 0.3 % (0-2); Eosinophils Absolute Auto 0.1 X10*3/uL (0.0-0.4); Eosinophils Percent Auto 0.6 % (0-4); Hematocrit 46.5 % (42.0-52.0); Hemoglobin 16.1 g/dl (14.0-18.0); Imm Gran Abs Auto 0.03 X10*3/uL (0.00-0.03); Imm Gran Pct Auto 0.3 % (0.0-0.4); Lymphocytes Absolute Auto 0.5 X10*3/uL (1.2-4.9); Lymphocytes Percent Auto 5.5 % (20-40); Mean Corpuscular HGB Conc 34.6 g/dl (31.0-36.0); Mean Corpuscular Hemoglobin 30.1 pg (27.0-33.0); Mean Corpuscular Volume 86.9 fL (80.0-98.0); Monocytes Absolute Auto 0.6 X10*3/uL (0.1-1.2); Monocytes Percent Auto 6.9 % (2-11); Neutrophils Absolute Auto 7.5 x10*3/uL (2.0-8.3); Neutrophils Percent Auto 86.4 % (45-73); Platelet Count 197 X10*3/uL (160-400); Red Blood Count 5.35 X10*6/uL (4.60-5.80); Red Cell Distribution Width 12.2 % (11.0-16.0); White Blood Count 8.7 X10*3/uL (4.8-10.8)
[2023-08-19] MEDS: Ketorolac Tromethamine 30 MG/ML VIAL IVPUSH (08:09)
[2023-08-19 08:18] LABS: Anion Gap 20 (12-20); Blood Urea Nitrogen 18 mg/dL (9-16); Calcium 9.4 mg/dL (8.4-10.2); Carbon Dioxide 16 mmol/L (22-29); Chloride 109 mmol/L (96-108); Creatinine Clr Calc Pharmacy 141.9; Estimated Glomerular Filt Rate > 60; Glucose Random 137 mg/dL (60-115); Lipase 58 U/L (8-78); Magnesium 2.1 mg/dL (1.6-2.6); Potassium 3.8 mmol/L (3.3-5.1); Sodium 141 mmol/L (135-145)
[2023-08-19 08:23] LABS: IDNOW Serial# 152EDE1D
[2023-08-19 08:24] LABS: COVID-19 Test Negative (Negative)
[2023-08-19 08:25] LABS: IDNOW Serial# 08D9AD1C; Influenza A Negative (Negative); Influenza B2 Negative (Negative)
[2023-08-19 09:30] VITALS: BP 131/90; PULSE 122; RESP 20; TEMP 36.9; O2SAT 95
[2023-08-19 09:37] LABS: Appearance Urine Clear; Color Urine Yellow; Glucose Urine UA Negative (Negative); Leukocyte Esterase Urine Negative (Negative); Nitrite Urine Negative (Negative); Specific Gravity - Urine 1.015 (1.005-1.025); UMIC TRIGGER UACC YES; Urine Blood Negative (Negative); Urine Ketones 15 mg/dL (Negative); Urine Protein 30 (1+) mg/dL (Neg-Trace)
[2023-08-19 09:42] LABS: Bacteria Urine None Seen (None Seen); Hyaline Casts Urine 0-2 /LPF (0-2); RBC Urine 0-2 /HPF (0-2); Squamous Epithelial Cell Urine 0-2 /HPF (0-2); WBC Urine 0-5 /HPF (0-5)
== END 2023-08-19 10:17 | disposition home or self-care (01) ==
PROVIDERS: Physician Assistant Medical; Emergency Provider Emergency Medicine
DX: K52.9 Noninfective gastroenteritis and colitis, unspecified (principal); R11.2 Nausea with vomiting, unspecified; Z79.899 Other long term (current) drug therapy; Z11.52 Encounter for screening for COVID-19; Z20.828 Contact with and (suspected) exposure to other viral communicable diseases
CPT/HCPCS: 80048; 81001; 83690; 83735; 85025; 87502; 87635; 96361; 96374; 96375; 99284; J1790; J1885